=== PATIENT | female | born 1990 ===

== ENCOUNTER → 2021-12-02 | Outpatient (CLI) | payer BC ==
[2021-12-05 15:08] LABS: CHLAMYDIA TRACHOMATIS, NAA Negative (Negative); HPV 16 Negative (Negative); HPV 18 Negative (Negative); HPV OTHER HR TYPES Negative (Negative)
== END | disposition home or self-care (01) ==
LOC: LAB SHORT 12:56 → LAB 12:56
PROVIDERS: Advanced Practice Midwife
DX: Z01.419 Encounter for gynecological examination (general) (routine) without abnormal findings (principal); Z11.3 Encounter for screening for infections with a predominantly sexual mode of transmission
CPT/HCPCS: 87491; 87591; 87624; G0123

== ENCOUNTER → 2023-04-11 | Outpatient (CLI) | payer BC ==
[2023-04-11 17:36] LABS: BASOPHILS ABSOLUTE AUTO 0.03 K/mm3 (0.00-0.23); BASOPHILS PERCENT AUTO 0 % (0-2); EOSINOPHILS ABSOLUTE AUTO 0.05 K/mm3 (0.00-0.68); EOSINOPHILS PERCENT AUTO 1 % (0-6); Hematocrit 44.1 % (33.0-51.0); Hemoglobin 14.5 g/dL (11.5-16.0); IMMATURE GRAN ABSOLUTE AUTO 0.12 K/mm3 (0.00-0.10); IMMATURE GRAN PERCENT AUTO 1 % (0-1); LYMPHOCYTES PERCENT AUTO 8 % (21-46); MONOCYTES ABSOLUTE AUTO 1.13 K/mm3 (0.16-1.47); MONOCYTES PERCENT AUTO 12 % (4-13); Mean Corpuscular HGB 30.1 pg (26.0-34.0); Mean Corpuscular HGB Conc 32.9 g/dL (31.5-36.5); Mean Corpuscular Volume 92 fL (80-100); Mean Platelet Volume 10.4 fL (9.1-12.4); NEUTROPHILS ABSOLUTE AUTO 7.66 K/mm3 (1.96-9.15); NEUTROPHILS PERCENT AUTO 78 % (41-73); Platelet Count 282 K/mm3 (150-400); RDW Coefficient Variation 13.5 % (11.7-14.2); RDW Standard Deviation 45.9 fL (35.1-46.3); Red Blood Cell Count 4.82 M/mm3 (3.80-5.20); White Blood Cell Count 9.79 K/mm3 (4.00-11.30)
[2023-04-11 17:57] LABS: Albumin, Blood 3.7 g/dL (3.4-5.0); Albumin/Globulin Ratio 0.8 (0.8-1.8); Bilirubin, Total 0.4 mg/dL (0.1-1.0); Bun/Creatinine Ratio 10.9 (12.0-20.0); Creatinine, Blood 0.64 mg/dL (0.40-1.00); Globulin, Blood 4.5 g/dL (2.2-4.0); Potassium, Blood 3.3 mmol/L (3.5-5.5); Total Protein, Blood 8.2 g/dL (6.4-8.2)
== END | disposition home or self-care (01) ==
LOC: LAB SHORT 13:40
PROVIDERS: Family Medicine
DX: R50.9 Fever, unspecified (principal)
CPT/HCPCS: 80053; 85025

== ENCOUNTER 2024-03-10 09:22 | Day surgery (SDC) | payer BC ==
[~2024-03-10] VITALS: Ht 156 cm; Wt 84.1 kg
[2024-03-10] VITALS (11 sets, daily range): BP systolic 113–136; BP diastolic 70–92
[~2024-03-10 09:22] MED LIST: LevonorgestreL 1 EACH IUD VAG ONE
[2024-03-10] MEDS ORDERED: Lactated Ringer's 1,000 ML IV SCH (09:30)
[2024-03-10] MEDS ORDERED: Rocuronium Bromide 10 MG/ML 5ML Injection IV ONE ×2 (09:42→14:43)
[2024-03-10] MEDS ORDERED: Metoclopramide HCl 5MG / ML 2ML Vial ONE (09:42)
[2024-03-10] MEDS ORDERED: Sugammadex Sodium 200 MG/2ML SDV (100 MG/ML) ONE (09:42)
[2024-03-10] MEDS ORDERED: Ketorolac Tromethamine 30mg Vial ONE (09:42)
[2024-03-10] MEDS ORDERED: Ondansetron HCl 2 MG / ML 2ML Vial ONE (09:42)
[2024-03-10] MEDS ORDERED: Dexamethasone Sod Phos 10 MG/ML 1ML VIAL ONE (09:42)
[2024-03-10] MEDS ORDERED: HYDROmorphone HCl/Pf 1MG SYR ONE (09:42)
[2024-03-10] MEDS ORDERED: Lidocaine HCl 4% 5 ML SDA ONE (12:00)
[2024-03-10] MEDS ORDERED: propofoL 150 ML IV ONE (12:00)
--- NOTE | 2024-03-10 12:00 | NUR ---
PATIENT WAS UNABLE TO REMOVED GOLD TONE ANKLET TO LLE. COBAN WRAPPED UNDER AND OVER IT TO SECURE IT IN PLACE. [facility] SIGNED.
[2024-03-10] MEDS ORDERED: Acetaminophen 500 MG Tab ONE (12:13)
[2024-03-10] MEDS ORDERED: Bupivacaine 0.5% HCl 5 MG/ML 30MLVIAL ONE (12:18)
[2024-03-10] MEDS ORDERED: propofoL 40 ML IV ONE ×2 (14:07→14:51)
[2024-03-10] MEDS ORDERED: MetroNIDAZOLE 500MG/NS 100 ml 100 ML IV ONE (14:10)
[2024-03-10] MEDS ORDERED: CeFAZolin Sodium 2,000 MG in NS 100 ML IV PRN (14:10)
[2024-03-10] MEDS ORDERED: propofoL 50 ML IV ONE (15:18)
[2024-03-10] MEDS ORDERED: FentaNYL Citrate 50 MCG/ML 2 ML Injection ONE (15:24)
[2024-03-10] MEDS ORDERED: Naloxone HCl 0.4MG / ML 1ML Vial ONE (16:23)
[2024-03-10] MEDS ORDERED: Simethicone 80 MG Chew PO PRN (16:55)
[2024-03-10] MEDS ORDERED: OxyCODONE HCL 5 MG TAB PO PRN ×2 (16:55→17:00)
[2024-03-10] MEDS ORDERED: Metoclopramide HCl 10 MG Tab PO PRN (17:00)
[2024-03-10] MEDS ORDERED: FentaNYL Citrate 50 MCG/ML 2 ML Injection IV PRN (17:00)
[2024-03-10] MEDS ORDERED: DiphenhydrAMINE HCL 25 MG Cap PO PRN (17:00)
[2024-03-10] MEDS ORDERED: FLU VACC TS2024-25(6MOS UP)/PF 45 MCG/0.5 ML SYRINGE IM SCH (17:00)
[2024-03-10] MEDS ORDERED: Ondansetron HCl 2 MG / ML 2ML Vial IV PRN (17:00)
--- NOTE | 2024-03-10 17:26 | NUR ---
TO STEP FROM PACU, AWAKE PAIN 05/05. 4 SMALL ABDOMINAL INCISIONS D&I WITH DERMA JUSTIN. PO FLUIDS GIVEN TOLERATING WELL. MOTHER AT BEDSIDE
[2024-03-10] MEDS ORDERED: Ketorolac Tromethamine 30mg Vial IV SCH (18:00)
== END 2024-03-10 18:00 | disposition home or self-care (01) ==
LOC: ORSCMMR 09:22 → ORD 14:15 → ORSCMMR 18:00
PROVIDERS: Obstetrics & Gynecology
PROC: 0TJB8ZZ Inspection of Bladder, Via Natural or Artificial Opening Endoscopic (ICD-10-PCS; principal; 2024-03-10 11:00)
PROC: 0U5F4ZZ Destruction of Cul-de-sac, Percutaneous Endoscopic Approach (ICD-10-PCS; principal; 2024-03-10 11:00)
DX: N83.202 Unspecified ovarian cyst, left side (principal); N73.6 Female pelvic peritoneal adhesions (postinfective); N80.351 Endometriosis of the right pelvic sidewall, unspecified depth; N80.102 Endometriosis of left ovary, unspecified depth
CPT/HCPCS: 88305; A9270; J1100; J1171; J1885; J2003; J2310; J2405; J2704; J2765; J3010; J7120; J7297

== ENCOUNTER 2024-05-27 09:20 | Day surgery (SDC) | payer BC ==
[~2024-05-27] VITALS: Ht 157.5 cm; Wt 81.7 kg
[~2024-05-27 09:20] MED LIST changes: +Lactated Ringer's 1,000 ML IV ONE; -LevonorgestreL 1 EACH IUD VAG ONE; +propofoL 50 ML IV ONE
[2024-05-27] MEDS ORDERED: Lactated Ringer's 1,000 ML IV ONE (10:03)
[2024-05-27 11:12] VITALS: BP 102/81
== END 2024-05-27 11:07 | disposition home or self-care (01) ==
LOC: ORSCSDS 09:20
PROVIDERS: Surgery
PROC: 0DBH8ZX Excision of Cecum, Via Natural or Artificial Opening Endoscopic, Diagnostic (ICD-10-PCS; principal; 2024-05-27 11:00)
DX: Z12.11 Encounter for screening for malignant neoplasm of colon (principal); K63.5 Polyp of colon; K64.8 Other hemorrhoids; K64.4 Residual hemorrhoidal skin tags; K66.0 Peritoneal adhesions (postprocedural) (postinfection)
CPT/HCPCS: 88305; J2704; J7120

== ENCOUNTER 2025-02-06 11:01 | Day surgery (SDC) | payer BC ==
[~2025-02-06] VITALS: Ht 157.5 cm; Wt 83.3 kg
[~2025-02-06 11:01] MED LIST changes: +Bupivacaine 0.5% W/EPI 1:200000 SDV 30 ML Vial ONE; -Lactated Ringer's 1,000 ML IV ONE; -propofoL 50 ML IV ONE
[2025-02-06] MEDS ORDERED: CeFAZolin Sodium 2,000 MG VIAL ONE (11:45)
[2025-02-06] MEDS ORDERED: UBRELVY100 MG PO (12:06)
[2025-02-06] MEDS ORDERED: Amitriptyline H10 MG PO (12:06)
[2025-02-06] MEDS ORDERED: IBUP200 PO (12:07)
[2025-02-06] MEDS ORDERED: Midazolam HCl 1MG / ML 2ML Vial ONE (12:40)
[2025-02-06] MEDS ORDERED: FentaNYL Citrate 50 MCG/ML 2 ML Injection ONE (12:40)
--- NOTE | 2025-02-06 13:48 | NUR ---
02/06/25 1348 Fatoumata Cruz TIME OUT PERFORMED AT BEDSIDE WITH DR BLUE AT 1329. PT PLACED ON 2 L O2 FOR PROCEDURE AND SPO2 AND HR MONITORED THROUGHOUT. POPLITEAL BLOCK STARTED AT 1336. ENDED AT 1339. PT TOLERATED PROCEDURE WELL. PT RECEIVED TOTAL OF 2MG IV VERSED AND 50MCG FENTANYL IV FROM DR BLUE.
[2025-02-06] MEDS ORDERED: Ondansetron HCl 2 MG / ML 2ML Vial ONE (14:22)
[2025-02-06] MEDS ORDERED: Dexamethasone Sod Phos 10 MG/ML 1ML VIAL ONE (14:22)
[2025-02-06] MEDS ORDERED: Ketorolac Tromethamine 30mg Vial ONE (14:22)
[2025-02-06] MEDS ORDERED: HYDROmorphone HCl/Pf 1MG SYR ONE (14:49)
--- NOTE | 2025-02-06 15:31 | NUR ---
02/06/25 1531 Emma Clinton DC'Catherine AT 1530. PT NOW HAS 100% ON ROOM AIR.
[2025-02-06 15:48] VITALS: BP 109/81
--- NOTE | 2025-02-06 15:52 | NUR ---
02/06/25 1552 Emma Clinton PT IS IN THE BED AT THIS TIME. PT IS TOLERATING PO FLUIDS WELL AND DENIES NAUSEA. PT RATES PAIN 7/10 ON THE MEDIAL SIDE OF THE OP LEG. DR BLUE STATED IN PACU THAT HE WOULD DO AN ADDITIONAL NERVE BLOCK IF NEEDED IN STEP DOWN. DR BLUE WILL BE UPDATED REGARDING THIS PT'S PAIN. VSS. WARM BLANKETS PROVIDED.
== END 2025-02-06 16:40 | disposition home or self-care (01) ==
LOC: ORSCSDS 11:01
PROVIDERS: Podiatrist Foot & Ankle Surgery
PROC: 0MQQ0ZZ Repair Right Ankle Bursa and Ligament, Open Approach (ICD-10-PCS; principal; 2025-02-06 13:00)
PROC: 0SBF4ZZ Excision of Right Ankle Joint, Percutaneous Endoscopic Approach (ICD-10-PCS; principal; 2025-02-06 13:00)
DX: M65.971 Unspecified synovitis and tenosynovitis, right ankle and foot (principal); M93.271 Osteochondritis dissecans, right ankle and joints of right foot; M25.371 Other instability, right ankle; M25.471 Effusion, right ankle; E66.9 Obesity, unspecified; Z68.33 Body mass index [BMI] 33.0-33.9, adult; Z79.899 Other long term (current) drug therapy
CPT/HCPCS: A6253; C1713; C1762; J0166; J0690; J1100; J1171; J1885; J2250; J2405; J2704; J3010; J7120